=== PATIENT | male | born 1955 | race African-American/Black ===

== ENCOUNTER 2020-09-11 09:57 | Emergency (ER) | payer BC ==
[~2020-09-11] VITALS: Ht 198.1 cm; Wt 99.8 kg
[2020-09-11] MEDS ORDERED: METFORMIN HCL500 M3 PO (10:31)
[2020-09-11] MEDS ORDERED: CYCLOBENZAPRINE5 MG PO (11:02)
[2020-09-11] MEDS ORDERED: MOBIC15 MG PO (11:02)
[2020-09-11 11:35] VITALS: BP 148/77
== END 2020-09-11 13:29 | disposition home or self-care (01) ==
LOC: ER 09:57
DX: M54.6 Pain in thoracic spine (principal); M54.5 Low back pain; Z79.899 Other long term (current) drug therapy; V59.9XXA Occupant (driver) (passenger) of pick-up truck or van injured in unspecified traffic accident, initial encounter; Y93.89 Activity, other specified; Y92.89 Other specified places as the place of occurrence of the external cause; Y99.8 Other external cause status